=== PATIENT | male | born 2000 | race Caucasian/White ===

== ENCOUNTER 2020-11-21 13:12 | Emergency (ER) | payer BC ==
[~2020-11-21] VITALS: Ht 177.8 cm; Wt 73.0 kg
--- NOTE | 2020-11-21 13:34 | PHYS DOC ---
Past History Past Medical History brain cyst, legg calve perthes Past Surgical History hip and knee surgery Smoking: Non-smoker Alcohol Use: None Drug Use: None General Adult EDM: Chief Complaint: NEAR SYCOPE HPI: HPI: 20-year-old male presenting the emergency department today with feeling lightheaded intermittently for months. He denies any pain when this happens but feels lightheaded. He denies any focal neurologic deficits. Review of systems negative for palpitations abdominal pain vomiting fevers chills headache nuchal rigidity or neurologic deficits. All other review of systems negative. ED course: 20-year-old male presenting with lightheaded episodes for months. EKG obtained and reviewed by myself shows sinus rhythm with a regular rate. ST segments congruent. Not suggestive of acute ischemia. Blood work obtained and unremarkable. On reexamination the patient is comfortably resting in the examination room. I explained to him his results and we will discharge him to follow-up with his doctor in 1 to 2 days. He will need to establish primary care doctor. He can also follow-up with an urgent care locally if he is unable to establish care and time. Physical Exam: PE: Constitutional: Well developed, well nourished, no acute distress, non-toxic a ppearance. [] HENT: Normocephalic, atraumatic, bilateral external ears normal, oropharynx moist, no oral exudates, nose normal. [] Eyes: PERRLA, EOMI, conjunctiva normal, no discharge. [] Neck: Normal range of motion, no tenderness, supple, no stridor. [] Cardiovascular:Heart rate regular rhythm, no murmur [] Lungs & Thorax: Bilateral breath sounds clear to auscultation [] Abdomen: Bowel sounds normal, soft, no tenderness, no masses, no pulsatile masses. [] Skin: Warm, dry, no erythema, no rash. [] Back: No tenderness, no CVA tenderness. [] Extremities: No tenderness, no cyanosis, no clubbing, ROM intact, no edema. [] Neurologic: Mental status: Awake oriented and alert x3 Cranial nerves: Extraocular movements intact, eyebrows katiuska bilaterally, smile symmetric, uvula elevation nl, shoulder shrug intact bilaterally, tongue protrusion normal Sensation: equal and normal in all extremities Strength: 5/5 in upper and lower extremities bilaterally No nystagmus. Normal speech. Psychologic: Affect normal, judgement normal, mood normal. [] EKG: EKG: [] Radiology/Procedures: Radiology/Procedures: [] Heart Score: Risk Factors: Risk Factors: DM, Current or recent (<one month) smoker, HTN, HLP, family history of CAD, obesity. Risk Scores: Score 0 - 3: 2.5% MACE over next 6 weeks - Discharge Home Score 4 - 6: 20.3% MACE over next 6 weeks - Admit for Clinical Observation Score 7 - 10: 72.7% MACE over next 6 weeks - Early Invasive Strategies Course & Med Decision Making: Course & Med Decision Making Pertinent Labs and Imaging studies reviewed. (See chart for details) [] Dragon Disclaimer: Dragon Disclaimer: This electronic medical record was generated, in whole or in part, using a voice recognition dictation system. Departure Departure: Impression: Primary Impression: Near syncope Disposition: 01 DC HOME SELF CARE/HOMELESS Condition: STABLE Referrals: PCP,NO (PCP) Patient Instructions: Dizziness CHAD MAIER MD Nov 21, 2020 13:34
[2020-11-21] MEDS: IV NORMAL SALINE 1,000ML 1,000 ML IV ONE (13:42)
[2020-11-21 13:49] LABS: BASO % 1 % (0-3); EOS % 0 % (0-3); HEMATOCRIT 44.8 % (39.0-53.0); HEMOGLOBIN 15.2 g/dL (13.0-17.5); LYMPH # 1.3 x10^3/uL (1.0-4.8); LYMPH % 14 % (24-48); MEAN CORPUSCULAR HEMOGLOBIN 30 pg (25-35); MEAN CORPUSCULAR HGB CONC 34 g/dL (31-37); MEAN CORPUSCULAR VOLUME 88 fL (79-100); MONO # 0.5 x10^3/uL (0.0-1.1); MONO % 6 % (0-9); NEUT % 79 % (31-73); PLATELET COUNT 274 x10^3/uL (140-400); RED BLOOD COUNT 5.06 x10^6/uL (4.30-5.70); RED CELL DISTRIBUTION WIDTH 12.5 % (11.5-14.5); WHITE BLOOD COUNT 8.9 x10^3/uL (4.0-11.0)
--- NOTE | 2020-11-21 13:55 | EKG ---
[address] [address] Test Date: 2020-11-21 Test Time: 13:38:34 Pat Name: LEONIDAS MATT Department: Room: Gender: M [place] Layer: ARAMIS : 2000 Requested By: CHAD MAIER Order Number: [id number] Reading MD: Measurements Intervals [place] Rate: 95 P: 54 NH: 144 QRS: -24 QRSD: 94 T: 37 QT: 322 QTc: 408 Interpretive Statements SINUS RHYTHM LEFTWARD AXIS OTHERWISE NORMAL ECG RI6.02 No previous ECG available for comparison
[2020-11-21 13:59] LABS: CALCIUM 9.6 mg/dL (8.5-10.1); CREATININE 0.9 mg/dL (0.7-1.3); GFR 105.5; POTASSIUM 3.6 mmol/L (3.5-5.1)
--- NOTE | 2020-11-21 14:35 | RAD ---
EXAM: CT Head without IV contrast INDICATION: Reason: presyncope, hx of "brain cyst" / Spl. Instructions: / History: TECHNIQUE: Multi-detector row CT images were obtained of the head without the use of IV contrast. All CT scans performed at this facility utilize dose optimization techniques as appropriate to the exam, including the following: Automated exposure control and adjustment of the mA and/or KV according to patient size (this includes techniques or standardized protocols for targeted exams where dose is ind ication/reason for exam). COMPARISON: None FINDINGS: BRAIN PARENCHYMA: No evidence of acute intraparenchymal hemorrhage or infarct. No abnormal parenchyma l density or mass. VENTRICLES & EXTRA-AXIAL SPACES: Ventricles are within normal limits. Basilar cisterns are patent. T here is a CSF density mass in the right middle cranial fossa measuring 3.7 x 2.4 x 2.5 cm, flattening the anterior tip right temporal lobe. ORBITS: Orbital contents are unremarkable. SINUSES: Visualized paranasal sinuses and mastoid air cells are clear. OSSEOUS & SOFT TISSUES: Calvarium and skull base are intact. IMPRESSION: 1. Arachnoid cyst in the right middle cranial fossa. 2. No acute intracranial pathology. EXAM: CT HEAD/BRAIN WO, XR CHEST 1V INDICATION: Reason: presyncope, hx of "brain cyst" / Spl. Instructions: / History: . TECHNIQUE: Single view COMPARISON: None available FINDINGS: The heart size is normal. The great vessels appear unremarkable. There is no hilar or mediastinal mass. The lungs are clear. There is no pleural effusion or pneumothorax. There are no significant osseous abnormalities. IMPRESSION: No active cardiopulmonary disease. Electronically signed by: Flores Scott MD (11/21/2020 2:32 PM) [id number]
[2020-11-21 15:18] VITALS: BP 126/72
== END 2020-11-21 16:07 | disposition home or self-care (01) ==
LOC: ER 13:12
DX: R55 Syncope and collapse (principal); R42 Dizziness and giddiness
CPT/HCPCS: 36415; 70450; 71045; 80048; 82947; 83735; 84484; 85025; 85379; 93005; 96360; 96361; 99285; J7030

== ENCOUNTER 2021-02-16 19:52 | Emergency (ER) | payer BC ==
[~2021-02-16] VITALS: Ht 177.8 cm; Wt 71.6 kg
[2021-02-16 20:07] VITALS: BP 145/88
--- NOTE | 2021-02-16 20:33 | RAD ---
Exam: Chest one view INDICATION: Chest tightness TECHNIQUE: Frontal view of the chest Comparisons: 11/26/2020 FINDINGS: The cardiomediastinal silhouette and pulmonary vessels are within normal limits. The lung and pleural spaces are clear. IMPRESSION: No acute cardiopulmonary process. Electronically signed by: Nena Keating MD (02/16/2021 8:30 PM) STEVE
--- NOTE | 2021-02-16 20:40 | PHYS DOC ---
Past History Past Medical History: Other Additional Past Medical Histor: [id number] DISEASE; BRAIN CYST Past Surgical History: Other Additional Past Surgical Histo: RIGHT HIP X3; LEFT KNEE Smoking: Non-smoker Alcohol Use: Occasionally Drug Use: None Adult General Chief Complaint Chief Complaint: CHEST PAIN HPI HPI Patient is a 20-year-old male who presents with chest discomfort. States he was jogging yesterday and got winded. States he used to jog all the time but has quit for about the last 3 months. States that as soon as he sat down to rest he felt better. States he told his mom about it and she told him he should go to the emergency department to make sure he was not having a heart attack. Currently asymptomatic, and denies any recent illnesses, fevers, chest pain, shortness of breath, abdominal pain, nausea, vomiting. Denies any recent travel or ill contacts. Review of Systems Review of Systems Review of systems otherwise unremarkable except noted in HPI Allergies Allergies Allergies Coded Allergies Type Severity Reaction Last Updated Verified acetaminophen Allergy Unknown Hives 11/21/20 Yes oxycodone Allergy Unknown Hives 11/21/20 Yes Physical Exam Physical Exam Constitutional: Well developed, well nourished, no acute distress, non-toxic appearance. [] HENT: Normocephalic, atraumatic, bilateral external ears normal, oropharynx moist, no oral exudates, nose normal. [] Cardiovascular:Heart rate regular rhythm, no murmur [] Lungs & Thorax: Bilateral breath sounds clear to auscultation [] Abdomen: Bowel sounds normal, soft, no tenderness, no masses, no pulsatile masses. [] Skin: Warm, dry, no erythema, no rash. [] Back: No tenderness, Extremities: No tenderness, no cyanosis, no clubbing, ROM intact, no edema. [] Neurologic: Alert and oriented X 3, normal motor function, normal sensory function, no focal deficits noted. [] Psychologic: Affect normal, judgement normal, mood normal. [] Current Patient Data Vital Signs Vital Signs Date Time Temp Pulse Resp B/P (MAP) Pulse Ox O2 Delivery O2 Flow Rate FiO2 02/16/21 20:07 97.6 74 18 145/88 (107) 98 Room Air EKG EKG [] Radiology/Procedures Radiology/Procedures [] Exam: Chest one view INDICATION: Chest tightness TECHNIQUE: Frontal view of the chest Comparisons: 11/26/2020 FINDINGS: The cardiomediastinal silhouette and pulmonary vessels are within normal limits. The lung and pleural spaces are clear. IMPRESSION: No acute cardiopulmonary process. Electronically signed by: Nena Keating MD (02/16/2021 8:30 PM) [facility] Heart Score C/O Chest Pain: No HEART Score for Chest Pain: HEART Score for Chest Pain Response (Comments) Value History Slighlty/Non-Suspicious 0 ECG Normal 0 Age < 45 0 Risk Factors No Risk Factors 0 Total 0 Risk Factors: Risk Factors: DM, Current or recent (<one month) smoker, HTN, HLP, family history of CAD, obesity. Risk Scores: Risk Factors: DM, Current or recent (<one month) smoker, HTN, HLP, family history of CAD, obesity. Course & Med Decision Making Course & Med Decision Making Patient is a 20-year-old male who presents with shortness of breath after jogging for the first time in 3 months yesterday Vital signs not concerning. Physical exam noted above. EKG normal. Heart score minus troponin completely normal. Patient with no risk factors for cardiovascular disease and is asymptomatic. Discussed all findings with patient and recommended follow-up tomorrow with primary care physician to discuss ED visit and set up a follow-up visit. Gave strict return precautions to the ED. Patient grateful, verbalized understanding and agreed with plan of discharge. [] Dragon Disclaimer Dragon Disclaimer This electronic medical record was generated, in whole or in part, using a voice recognition dictation system. Departure Departure: Impression: Primary Impression: Shortness of breath Disposition: 01 DC HOME SELF CARE/HOMELESS Condition: GOOD Referrals: PCP,NO (PCP) KRISTEN BROWNE MD Patient Instructions: Shortness of Breath, [id number] Additional Instructions: Please read all the attached information. Please call either the [facility], [facility] or Dr. Chan at the number provided to establish care first thing in the morning. Please update on ED visit and set up a follow-up appointment as soon as possible. Please come back to the ED with new or concerning symptoms as discussed. CORINNE PALOMO MD Feb 16, 2021 20:40
--- NOTE | 2021-02-16 20:47 | EKG ---
[address] [address] Test Date: 2021-02-16 Test Time: 20:16:36 Pat Name: LEONIDAS MATT Department: Room: Gender: M [employer]: LISA : 2000 Requested By: CORINNE PALOMO Order Number: [id number] Reading MD: Measurements Intervals [place] Rate: 81 P: 59 NH: 150 QRS: -24 QRSD: 96 T: 42 QT: 334 QTc: 388 Interpretive Statements SINUS RHYTHM LEFTWARD AXIS OTHERWISE NORMAL ECG RI6.02 No previous ECG available for comparison
== END 2021-02-16 21:00 | disposition home or self-care (01) ==
LOC: ER 19:52
DX: R06.02 Shortness of breath (principal); R07.89 Other chest pain; Z88.5 Allergy status to narcotic agent; Z88.6 Allergy status to analgesic agent
CPT/HCPCS: 71045; 93005; 99283